=== PATIENT | female | born 1995 | race Caucasian/White ===

== ENCOUNTER 2018-07-08 09:32 | Emergency (ER) | payer OTHER ==
[2018-07-08 10:11] VITALS: BP 107/67; O2SAT 99
[2018-07-08] MEDS ORDERED: Adacel Vial IM ONE (10:11)
--- NOTE | 2018-07-08 10:20 | ERPHSYRPT ---
- History of Present Illness Time Seen by Provider: 07/08/18 10:15 Source: patient Exam Limitations: clinical condition Patient Subjective Stated Complaint: works at [employer] and stuck her left index finger with a dirty needle at approx 0720 this morning. Triage Nursing Assessment: pt states stuck herself with a dirty needle this am. small pinprick area noted to left index finger noted. no bleeding present. no c/o pain or disc. pt is currently 25 weeks . Physician History: PATIENT IS 25 WEEKS GESTATION COMPLAINS OF NEEDLE STICK TO LEFT INDEX FINGER AFTER GIVING RESIDENT OF [facility] AN INJECTION. NOTICED BLOOD FROM INJECTION SITE. DENIES PAIN, REDNESS OR BLOOD FROM SITE UPON ARRIVAL TO EMERGENCY ROOM. STATES SHE WASHED HER HANDS IMMEDIATELY. Occurred: just prior to arrival Method of Injury: other (NEEDLE STICK) Quality: other (DENIES PAIN) Severity of Pain-Max: none Severity of Pain-Current: none Extremities Pain Location: 3rd finger: left Modifying Factors: Improves With: nothing Associated Symptoms: none Allergies/Adverse Reactions: No Known Drug Allergies Allergy (Verified 05/21/14 18:48) Home Medications: No Home Meds [No Home Meds] 1 ea UD 05/21/14 [History] Hx Tetanus, Diphtheria Vaccination/Date Given: Yes Hx Influenza Vaccination/Date Given: No Hx Pneumococcal Vaccination/Date Given: No Immunizations Up to Date: Yes - Review of Systems Constitutional: No Symptoms, No Fever, No Chills Eyes: No Symptoms Ears, Nose, & Throat: No Symptoms Respiratory: No Cough, No Dyspnea Cardiac: No Chest Pain, No Edema, No Syncope Abdominal/Gastrointestinal: No Abdominal Pain, No Nausea, No Vomiting, No Diarrhea Genitourinary Symptoms: No Dysuria Musculoskeletal: Injury, Other (NEEDLE STICK TO LEFT INDEX FINGER) Skin: No Rash Neurological: No Dizziness, No Focal Weakness, No Sensory Changes Psychological: No Symptoms Endocrine: No Symptoms All Other Systems: Reviewed and Negative - Past Medical History Pertinent Past Medical History: No Neurological History: No Pertinent History ENT History: No Pertinent History Cardiac History: No Pertinent History Respiratory History: No Pertinent History Endocrine Medical History: No Pertinent History Musculoskeletal History: No Pertinent History GI Medical History: No Pertinent History History: No Pertinent History Psycho-Social History: No Pertinent History Female Reproductive Disorders: No Pertinent History - Past Surgical History Past Surgical History: Yes Neuro Surgical History: No Pertinent History Cardiac: No Pertinent History Respiratory: No Pertinent History Gastrointestinal: No Pertinent History Genitourinary: No Pertinent History Musculoskeletal: No Pertinent History Female Surgical History: No Pertinent History Other Surgical History: tonsils - Social History Smoking Status: Never smoker Exposure to second hand smoke: No Alcohol Use: None Drug Use: none Patient Lives Alone: No Significant Family History: no pertinent family hx - Female History Hx Last Menstrual Period: November 2017 Hx Now: Yes (currently 25 weeks ) - Nursing Vital Signs Nursing Vital Signs: Initial Vital Signs Temperature 98.0 F 07/08/18 09:32 Pulse Rate 103 H 07/08/18 09:32 Respiratory Rate 16 07/08/18 09:32 Blood Pressure 107/67 07/08/18 09:32 O2 Sat by Pulse Oximetry 99 07/08/18 09:32 Pain Scale Pain Intensity 0 - Physical Exam General Appearance: no apparent distress Hand Exam: non-tender (THERE IS A FAINT 0.5 PERFORATION OF SKIN LEFT INDEX FINGER RADIAL ASPECT MIDDLE PHALANGX ), no evidence of injury (NO HEMORRHAGE, ERYTHEMA STREAKS, FULL RANGE OF MOTION MCP,PIP DIP) SpO2: 99 Ordered Tests: Active Orders 24 hr Category Date Time Status Wound Care STAT Care 07/08/18 10:11 Active Medication Summary Discontinued Medications Generic Name Dose Route Start Last Admin Trade Name Freq PRN Reason Stop Dose Admin Diphtheria/Tetanus/Acell Pertussis 0.5 ml 07/08/18 10:11 07/08/18 10:26 Adacel Vial IM 07/08/18 10:12 0.5 ml .ONCE ONE Administration - Progress Progress Note: 07/08/18 11:20 PATIENT OFFERED PEP MEDS, REFUSAL DUE TO , ADMINISTERED ADACEL 0.5ML IM , PANEL FOR BLOOD BORNE PATHOGENS OBTAINED Counseled pt/family regarding: diagnosis, need for follow-up - Departure Time of Disposition: 11:26 Departure Disposition: Home Clinical Impression: Needle stick injury of finger, BLOOD BORNE PATHOGEN EXPOSURE Condition: Stable Critical Care Time: No Referrals: MARIBEL NIX MD [Primary Care Provider] - Additional Instructions: CLEANS WOUND 4-5 TIMES DAILY. WATCH FOR SIGNS OF INFECTION, REDNESS, DRAINAGE OR SWELLING. ANTIBIOTIC KEFLEX 500MG EVERY 8 HOURS FOR 10 DAYS. RETURN TO EMERGENCY FOR ONSET OF FEVER, REDNESS OR DRAINAGE FROM WOUND. FOLLOWUP WITH YOUR PRIMARY CARE PROVIDER IN 4-5 DAYS. Prescriptions: Cephalexin Mh 500 mg [Keflex 500 mg] 500 mg PO TID #30 capsule
[2018-07-08 13:03] VITALS: PULSE 88
[2018-07-09] MEDS ORDERED: Adacel Vial IM ONE (00:28)
[2018-07-09 04:34] LABS: Hepatitis B Sur Ag Screen Non Reactive (Non Reactive); Hepatitis B Surface Ab.Quant 82.96 mIU/mL (0.00-8.49); Hepatitis C Antibody by EIA Non Reactive (Non Reactive)
[2018-07-09 04:35] LABS: HIV Antigen/Antibody Combo Non Reactive (Non Reactive)
== END 2018-07-08 13:01 | disposition home or self-care (01) ==
LOC: ED 09:32
DX: S61.231A Puncture wound without foreign body of left index finger without damage to nail, initial encounter (principal); W45.8XXA Other foreign body or object entering through skin, initial encounter; W22.8XXA Striking against or struck by other objects, initial encounter; Y92.149 Unspecified place in prison as the place of occurrence of the external cause; Z77.21 Contact with and (suspected) exposure to potentially hazardous body fluids; Z20.89 Contact with and (suspected) exposure to other communicable diseases; Z34.92 Encounter for supervision of normal pregnancy, unspecified, second trimester
CPT/HCPCS: 36415; 86317; 86701; 86702; 86803; 87340; 87389; 90471; 90715; 99283

== ENCOUNTER 2020-08-23 10:32 | Day surgery (SDC) | payer BC ==
[~2020-08-23 10:32] MED LIST: CEFAZOLIN 2 GM-D5W BAG** 2 GM/50 ML ML IV SCH; Lactated Ringers 1,000 ML IV ONE; Lactated Ringers 1,000 ML IV SCH; Sensorcaine 0.25% 10 ML ONE
[2020-08-23] MEDS ORDERED: Lactated Ringers 1,000 ML IV ONE (10:46)
[2020-08-23] MEDS ORDERED: CEFAZOLIN 2 GM-D5W BAG** 2 GM/50 ML ML IV ONE (10:47)
[2020-08-23] MEDS ORDERED: DIPRIVAN 200 MG/20 ML IV ONE ×2 (12:09→12:29)
[2020-08-23] MEDS ORDERED: Versed 2 MG/2 ML Injection ONE (12:09)
[2020-08-23] MEDS ORDERED: Zemuron 100 MG/10 ML ONE (12:09)
[2020-08-23] MEDS ORDERED: SUBLIMAZE 250 MCG/5 ML ONE (12:09)
[2020-08-23] MEDS ORDERED: Triple Antibiotic Ointment ONE (13:08)
[2020-08-23] MEDS ORDERED: SUBLIMAZE 100 MCG/2 ML ONE (13:57)
[2020-08-23] MEDS ORDERED: TORAdol 30 mg Injection ONE (14:07)
[2020-08-23] MEDS ORDERED: NORCO 5/325 MG PO PRN (14:31)
[2020-08-23 15:00] VITALS: O2SAT 100
[2020-08-23 15:09] VITALS: BP 109/73; PULSE 58
--- NOTE | 2020-08-24 07:56 | OP ---
PROCEDURE DATE/TIME: 08/23/2020 1252 PREOPERATIVE DIAGNOSIS: Umbilical hernia. POSTOPERATIVE DIAGNOSIS: Umbilical hernia. PROCEDURE: Umbilical hernia repair. PROCEDURE PERFORMED BY: Marcai Glover M.D. ANESTHESIA: General. DESCRIPTION OF PROCEDURE: The patient is prepped and draped in the usual sterile fashion. Complete time out performed. A curvilinear incision was made at the inferior aspect of her umbilicus. There is an obvious hernia sac here. We carefully dissected this free off of the umbilicus. We then continued our dissection down to the fascial defect. The hernia sac was opened. Part of the preperitoneal fat was adherent to the hernia sac. We clamped, tied and resected the excess hernia sac with the adherent preperitoneral fatty content. The remainder of the tissue was able to be placed back into the abdomen. The defect is approximately 8 mm. The fascia has been cleared off. I then laid three sutures in place, used 0 Prolene figure-of-8 at the periphery and then a single interrupted 0 Prolene centrally. After placing the three sutures we then tied these down carefully. We had good closure. I did not feel mesh was necessary given the small size of the hernia. I cannot even place my finger into the hernia defect because it is small. The sac and contents were much larger than the actual defect itself. We then irrigated and insured hemostasis. Used a 3-0 Vicryl to tack the umbilicus down to the fascia. Used buried 3-0 Vicryl in the subcu tissue and then a running 4-0 subcuticular Monocryl stitch in the skin. Steri-Strips and sterile dressing with an umbilical sponge and abdominal binder. The patient tolerated the procedure very well. There were no immediate complications. She understands all of her postoperative instructions. I have written these down as well as discussed these with her significant other. She is currently . We did call pharmacy as well as the OB area. Pharmacy has recommended to hold two days after she has taken a [place]. I did discuss these recommendations with her and her significant other. I know many physicians allow patients to continue on pain medication and so I did discuss this as well as our pharmacy's recommendation and that she should call her child's timekeeping supervisor to determine what would be best for her specific child and they will also be following up with me as an outpatient.
== END 2020-08-23 15:13 | disposition home or self-care (01) ==
LOC: SDC 10:32
PROVIDERS: ATTEND Surgery
DX: K42.9 Umbilical hernia without obstruction or gangrene (principal)
CPT/HCPCS: 84703; J0690; J1885; J2250; J2704; J3010; L0625; A9270-GY

== ENCOUNTER 2022-04-04 07:49 | Inpatient (IN) | payer OTHER ==
[2022-04-04] MEDS ORDERED: Nubain 10 MG/ML IV PRN (17:00)
[2022-04-04] MEDS ORDERED: Ephedrine Sulfate 50 MG/ML IV PRN (17:00)
[2022-04-04] MEDS ORDERED: XYLOCAINE 1% HCL 20 ML MDV IJ PRN (17:00)
[2022-04-04] MEDS ORDERED: STADOL 2 MG IV PRN (17:00)
[2022-04-04] MEDS ORDERED: Lactated Ringers 1,000 ML IV ONE (17:00)
[2022-04-04] MEDS ORDERED: FENTANYL 2 MCG-BUPIV 0.125%-NS 250 ML Epidur 250 ML EPIDURAL SCH (17:00)
[2022-04-04] MEDS ORDERED: TYLENOL EXTRA STRENGTH 500 MG PO PRN (17:00)
[2022-04-04] MEDS: CYTOTEC PO SCH ×4 (17:39→23:28)
[2022-04-04 17:42] LABS: Absolute Neutrophil Ct (ANC) 6.93 x10^3/uL (1.4-6.9); Basophil (Absolute #) 0.04 x10^3/uL (0-0.4); Eosinophil % 2.1 % (0.00-5.0); Hematocrit 30.5 % (35-47); Hemoglobin 9.8 g/dL (12.0-16.0); Lymphocyte (Absolute #) 1.09 x10^3/uL (1.0-4.6); Lymphocytes % 11.3 % (24.0-44.0); Mean Corpuscular Hemoglobin 27.3 pg (26-32); Mean Corpuscular Hgb Concent. 32.1 g/dL (32-36); Mean Platelet Volume 10.6 fL (7.5-11.0); Monocyte (Absolute #) 1.19 x10^3/uL (0.0-1.3); Monocytes % 12.3 % (0.0-12.0); Neutrophil % 71.8 % (36.0-66.0); Platelet Count 186 x10^3/uL (150-450); Red Blood Count 3.59 x10^6/uL (4.1-5.4); White Blood Count 9.7 x10^3/uL (4.0-10.5)
[2022-04-04 18:04] LABS: Barbiturate,Urine NEGATIVE (NEGATIVE); Benzodiazepine,Urine NEGATIVE (NEGATIVE); Cocaine,Urine NEGATIVE (NEGATIVE); Methadone,Urine NEGATIVE (NEGATIVE); Opiate,Urine NEGATIVE (NEGATIVE); PCP,Urine NEGATIVE (NEGATIVE); THC,Urine NEGATIVE (NEGATIVE)
[2022-04-04 18:12] LABS: Amphetamine,Urine NEGATIVE (NEGATIVE)
[2022-04-04 19:17] LABS: ABO TYPING O; Antibody Screen NEGATIVE (NEGATIVE); RH TYPING POSITIVE
[2022-04-04] MEDS ORDERED: Zofran 4 MG/2 ML VIAL IV PRN (19:50)
[2022-04-05] MEDS: Lactated Ringers 1,000 ML IV SCH ×4 (01:24→21:21)
[2022-04-05] MEDS: CYTOTEC PO SCH ×4 (01:25→21:20)
[2022-04-05] MEDS ORDERED: PITOCIN 30 UNITS/ LR 500 ML 30 UNITS/500 ML PLAST..BAG IV SCH (05:00)
[2022-04-05] MEDS ORDERED: TUCKS TP PRN (11:54)
[2022-04-05] MEDS ORDERED: Dermoplast Spray TP PRN (11:54)
[2022-04-05] MEDS ORDERED: Anucort-HC SUPPOSITORY PR PRN (11:54)
[2022-04-05] MEDS ORDERED: Mylicon 80MG PO PRN (11:54)
[2022-04-05] MEDS ORDERED: CORTISONE 1% CREAM TP PRN (11:54)
[2022-04-05] MEDS ORDERED: Dulcolax 10 MG SUPP PR PRN (11:54)
[2022-04-05] MEDS ORDERED: Ambien 10 MG PO PRN (11:54)
[2022-04-05] MEDS ORDERED: LANSINOH 40 GM TOP PRN (11:54)
[2022-04-05] MEDS: MOTRIN 400 MG PO PRN (17:18)
[2022-04-05] MEDS: Docusate Sodium 100 MG PO SCH (21:18)
[2022-04-05] MEDS: Adacel Vial IM ONE (21:25)
[2022-04-06] MEDS: MOTRIN 400 MG PO PRN ×2 (00:30→10:17)
[2022-04-06 06:17] LABS: Absolute Neutrophil Ct (ANC) 5.24 x10^3/uL (1.4-6.9); Basophil (Absolute #) 0.03 x10^3/uL (0-0.4); Eosinophil % 4.5 % (0.00-5.0); Eosinophil (Absolute #) 0.38 x10^3/uL (0-0.5); Hematocrit 28.1 % (35-47); Hemoglobin 8.7 g/dL (12.0-16.0); Lymphocyte (Absolute #) 1.56 x10^3/uL (1.0-4.6); Lymphocytes % 18.3 % (24.0-44.0); Mean Cell Volume 86.7 fL (78-100); Mean Corpuscular Hemoglobin 26.9 pg (26-32); Mean Platelet Volume 10.6 fL (7.5-11.0); Monocyte (Absolute #) 1.17 x10^3/uL (0.0-1.3); Monocytes % 13.7 % (0.0-12.0); Neutrophil % 61.5 % (36.0-66.0); Platelet Count 142 x10^3/uL (150-450); Red Blood Count 3.24 x10^6/uL (4.1-5.4); Red Cell Distribution Width 14.1 % (11.5-14.0); White Blood Count 8.5 x10^3/uL (4.0-10.5)
--- NOTE | 2022-04-06 08:05 | PCM.NOTE ---
Date and Time: 04/06/22 0804 Subjective Assessment: ppd 1 sp pt resting in bed and doing well able to ambulate and tolerate diet. vss afebrile abd; soft uterus; firm lochia; mild hgb; 8.7 a/p sp ppd 1 desires discharge today should fu office 3 wks OBJECTIVE DATA Vital Signs: Vital Signs - 24 hr Temp Pulse Resp BP BP Pulse Ox 04/06/22 04:00 97.4 F 78 17 110/60 99 04/06/22 00:00 98.1 F 77 16 111/52 97 04/05/22 19:45 97.6 F 81 17 109/57 96 04/05/22 17:00 98.0 F 99 H 16 121/58 99 04/05/22 15:00 104 H 18 127/60 100 04/05/22 14:00 104 H 18 127/60 100 04/05/22 13:00 104 H 18 110/60 100 04/05/22 12:45 98.4 F 83 16 110/61 100 04/05/22 12:20 98.4 F 89 16 112/59 100 04/05/22 12:00 90 20 109/56 04/05/22 11:45 108 H 20 116/56 04/05/22 11:15 105 H 16 114/56 04/05/22 11:00 85 16 114/56 04/05/22 10:45 79 18 117/56 04/05/22 10:30 85 20 96/53 04/05/22 10:15 82 20 97/51 04/05/22 10:00 85 20 105/51 04/05/22 09:45 85 20 96/53 04/05/22 09:30 89 20 111/56 04/05/22 09:00 98.4 F 74 18 104/57 104/57 04/05/22 08:30 82 18 103/51 Pain Assessment - Last Documented Pain Intensity [Anterior/ 2 Posterior] Pain Intensity [Anterior] 0 Pain Intensity [Bilateral 5 Lower] Pain Intensity 2 Pain Scale Used FLACC Intake and Output: Intake & Output 04/03/22 04/04/22 04/05/22 04/06/22 11:59 11:59 11:59 11:59 Intake Total 6730 1960 Output Total 1100 Balance 5630 1960 Weight 78.018 kg Lab Results: Lab Results-Last 24 Hours 04/06/22 Range/Units 06:08 WBC 8.5 (4.0-10.5) x10^3/uL RBC 3.24 L (4.1-5.4) x10^6/uL Hgb 8.7 L (12.0-16.0) g/dL Hct 28.1 L (35-47) % MCV 86.7 (78-100) fL MCH 26.9 (26-32) pg MCHC 31.0 L (32-36) g/dL RDW 14.1 H (11.5-14.0) % Plt Count 142 L (150-450) x10^3/uL MPV 10.6 (7.5-11.0) fL Gran % 61.5 (36.0-66.0) % Immature Gran % (Auto) 1.6 H (0.00-0.4) % Nucleat RBC Rel Count 0.0 (0.00-0.1) % Eos # (Auto) 0.38 (0-0.5) x10^3/uL Immature Gran # (Auto) 0.14 H (0.00-0.03) x10^3u/L Absolute Lymphs (auto) 1.56 (1.0-4.6) x10^3/uL Absolute Monos (auto) 1.17 (0.0-1.3) x10^3/uL Absolute Nucleated RBC 0.00 (0.00-0.01) x10^3u/L Lymphocytes % 18.3 L (24.0-44.0) % Monocytes % 13.7 H (0.0-12.0) % Eosinophils % 4.5 (0.00-5.0) % Basophils % 0.4 (0.0-0.4) % Absolute Granulocytes 5.24 (1.4-6.9) x10^3/uL Basophils # 0.03 (0-0.4) x10^3/uL Assessment/Plan (1) Vaginal delivery Current Visit: Yes Status: Acute Code(s): O80 - ENCOUNTER FOR FULL-TERM UNCOMPLICATED DELIVERY
--- NOTE | 2022-04-06 08:09 | PCM.DS ---
Discharge Summary Date of Admission: 04/05/22 07:49 Admitting Physician: CARMEN NATH DO Consults: Consults on Case 04/04/22 17:00 Notify Anesthesia Provider PRN Primary Care Provider: MARIBEL NIX [place] Allergies Allergies No Known Drug Allergies Allergy (Verified 04/05/22 22:31) Hospital Summary - Hospital Course Hospital Course: pt admitted on apr 04 for oral cytotec induction at 39 wks gestation and subsequently was started on pitocin on apr 05 and delivered live baby boy without complication. during period did well had hgb at 8.7 however stable. denies complaints at this time and all questions answered to her satisfaction. pt is to fu in office in 3 wks for care. - Vitals & Intake/Output Vital Signs: Vital Signs Temperature 97.4 F 04/06/22 04:00 Pulse Rate 78 04/06/22 04:00 Respiratory Rate 17 04/06/22 04:00 Blood Pressure 110/60 04/06/22 04:00 O2 Sat by Pulse Oximetry 99 04/06/22 04:00 Intake & Output: Intake & Output 04/03/22 04/04/22 04/05/22 04/06/22 11:59 11:59 11:59 11:59 Intake Total 6730 1960 Output Total 1100 Balance 5630 1960 Weight 78.018 kg - Lab Result Diagrams: 04/06/22 06:08 Lab Results-Last 24 Hrs: Lab Results-Last 24 Hours 04/06/22 Range/Units 06:08 WBC 8.5 (4.0-10.5) x10^3/uL RBC 3.24 L (4.1-5.4) x10^6/uL Hgb 8.7 L (12.0-16.0) g/dL Hct 28.1 L (35-47) % MCV 86.7 (78-100) fL MCH 26.9 (26-32) pg MCHC 31.0 L (32-36) g/dL RDW 14.1 H (11.5-14.0) % Plt Count 142 L (150-450) x10^3/uL MPV 10.6 (7.5-11.0) fL Gran % 61.5 (36.0-66.0) % Immature Gran % (Auto) 1.6 H (0.00-0.4) % Nucleat RBC Rel Count 0.0 (0.00-0.1) % Eos # (Auto) 0.38 (0-0.5) x10^3/uL Immature Gran # (Auto) 0.14 H (0.00-0.03) x10^3u/L Absolute Lymphs (auto) 1.56 (1.0-4.6) x10^3/uL Absolute Monos (auto) 1.17 (0.0-1.3) x10^3/uL Absolute Nucleated RBC 0.00 (0.00-0.01) x10^3u/L Lymphocytes % 18.3 L (24.0-44.0) % Monocytes % 13.7 H (0.0-12.0) % Eosinophils % 4.5 (0.00-5.0) % Basophils % 0.4 (0.0-0.4) % Absolute Granulocytes 5.24 (1.4-6.9) x10^3/uL Basophils # 0.03 (0-0.4) x10^3/uL Final Diagnosis/Problem List - Final Discharge Diagnosis/Problem (1) Vaginal delivery Current Visit: Yes Status: Acute Code(s): O80 - ENCOUNTER FOR FULL-TERM UNCOMPLICATED DELIVERY - Discharge Disposition: Home, Self-Care Condition: Stable Prescriptions: No Action Vit No.129/Iron/Folic [ Tablet] 1 each PO DAILY Follow up with: MARIBEL NIX MD [Primary Care Provider] - CARMEN NATH DO [ACTIVE STAFF] - 3 weeks
[2022-04-06] MEDS ORDERED: ENOXAPARIN SODIUM SQ ONE (09:00)
[2022-04-06] MEDS ORDERED: FERREX 150 PO SCH (10:00)
[2022-04-06] MEDS: Docusate Sodium 100 MG PO SCH (10:18)
[2022-04-06 11:01] VITALS: BP 120/55; PULSE 114; O2SAT 98
[2022-04-06] MEDS: Adacel Vial IM ONE (13:31)
[2022-04-06 17:33] LABS: HBsAg Screen Negative (Negative)
== END 2022-04-06 14:10 | disposition home or self-care (01) | DRG 807 ==
LOC: OB 07:49 → OBSVTOIN 04-05 07:49
PROVIDERS: ADMIT Obstetrics & Gynecology; ATTEND Obstetrics & Gynecology
PROC: 10E0XZZ Delivery of Products of Conception, External Approach (ICD-10-PCS; principal; 2022-04-05)
DX: O80 Encounter for full-term uncomplicated delivery (principal); Z37.0 Single live birth; Z3A.39 39 weeks gestation of pregnancy; Z20.828 Contact with and (suspected) exposure to other viral communicable diseases
CPT/HCPCS: 36415; 59400; 80307; 85025; 86850; 86900; 86901; 87086; 87340; 90715; G0378; J0595; J2405; J2590; A9270-GY